=== PATIENT | female | born 1970 | race Caucasian/White ===

== ENCOUNTER 2018-01-02 14:48 | Emergency (ER) | payer SELFPAY ==
--- NOTE | 2018-01-02 15:05 | ED Physician Documentation ---
General Adult - HISTORIAN Historian: patient - HPI Stated Complaint: L ear pain Chief Complaint: General Adult Onset: days ago (4) Timing: still present Severity: moderate Further Comments: yes (Pt is a 47 yo female with L ear pain x 3 days. Pt states she had some green drainage from L ear. No fever.) - ROS CONST: other (malaise) EYES/ENT: other (L ear pain) CVS/RESP: none GI/: none MS/SKIN/LYMPH: none - PAST HX Past History: other (BTL) Allergies/Adverse Reactions: Allergies Allergy/AdvReac Type Severity Reaction Status Date / Time lincomycin HCl Allergy Verified 01/02/18 15:02 [From Lincocin] Penicillins Allergy Verified 01/02/18 15:02 pseudoephedrine HCl Allergy Verified 01/02/18 15:02 [From Sudafed] Home Medications: Ambulatory Orders Medication Instructions Recorded NK [NK] 01/02/18 - SOCIAL HX Smoking History: cigarettes - FAMILY HX Family History: No - REVIEWED ASSESSMENTS Nursing Assessment Reviewed: Yes Vitals Reviewed: Yes Progress - Progress Progress: Rx Z-casandra. Use as directed on package. General Adult Physical Exam - PHYSICAL EXAM GENERAL APPEARANCE: mild distress EENT: pharynx normal, TM erythema NECK: normal inspection, supple RESPIRATORY: no resp distress, chest non-tender, breath sounds normal CVS: reg rate & rhythm, heart sounds normal BACK: normal inspection, no CVA tenderness SKIN: warm/dry, normal color EXTREMITIES: non-tender, normal range of motion, no evidence of injury, no edema NEURO: oriented X3, motor nml, sensation nml Discharge Clincal Impression: Left ear pain Referrals: Primary Doctor,No [Primary Care Provider] - 2 Days Condition: Good Disposition: 01 HOME, SELF-CARE Decision to Admit: NO Decision Time: 15:07
[2018-01-02 15:06] VITALS: BP 125/93
== END 2018-01-02 15:14 | disposition home or self-care (01) ==
LOC: ED 14:48
DX: H92.02 Otalgia, left ear (principal)
CPT/HCPCS: 99282